=== PATIENT | female | born 1995 | race Caucasian/White ===

== ENCOUNTER 2018-05-29 22:49 | Emergency (ER) | payer MEDICAID ==
[2018-05-30] MEDS: IBUPROFEN 600 MG TAB PO (01:46)
== END 2018-05-30 03:23 | disposition home or self-care (01) ==
LOC: FTE 22:49
DX: S89.92XA Unspecified injury of left lower leg, initial encounter (principal); W01.0XXA Fall on same level from slipping, tripping and stumbling without subsequent striking against object, initial encounter; Y92.9 Unspecified place or not applicable
CPT/HCPCS: 73562; 99283-25